=== PATIENT | female | born 1940 | race Two or more races ===

== ENCOUNTER 2023-02-11 13:01 | Inpatient (IN) | payer MEDICAID, OTHER ==
[~2023-02-11] VITALS: Ht 152.4 cm; Wt 71.5 kg
[2023-02-11 13:51] LABS: Basophils # (auto) 0 10 ^3/uL (0-0.2); Basophils % (auto) 0.5 % (0.0-2.0); Eosinophils # (auto) 0.1 10 ^3/uL (0-0.8); Eosinophils % (auto) 0.7 % (0.0-7.0); Hematocrit 32.5 % (36.0-46.0); Hemoglobin 10.9 g/dL (12.2-16.2); Lymphocytes # (auto) 0.8 10 ^3/uL (0.4-5.4); Lymphocytes % (auto) 10.8 % (10.0-50.0); Mean Corpuscular Hemoglobin 33.9 pg (28.0-32.0); Mean Corpuscular Hgb Conc. 33.7 g/dL (32.0-36.0); Mean Corpuscular Volume 100.9 fL (80.0-100.0); Monocytes % (auto) 13.5 % (0.0-12.0); Neutrophils # (auto) 5.4 10 ^3/uL (1.6-8.6); Neutrophils % (auto) 74.5 % (37.0-80.0); Nucleated Red Blood Cells % 0.1 %; Red Blood Cells 3.22 10^6/uL (4.0-5.20); Red Cell Distribution Width 12.9 % (11.8-14.3); White Blood Cell 7.2 10^3/uL (4.4-10.8)
[2023-02-11 14:05] LABS: Acetaminophen < 2.0 UG/ML (10.0-20.0); Alanine Aminotransferase 13 U/L (7-40); Albumin 4.5 g/dL (3.2-4.8); Alkaline Phosphatase 95 U/L (46-116); Anion Gap 5 (5-15); Aspartate Aminotransferase 21 U/L (13-40); BUN/Creatinine Ratio 13.1 (10.0-20.0); Blood Urea Nitrogen 17 mg/dL (9-23); Calcium 9.4 mg/dL (8.7-10.4); Carbon Dioxide 29 mmol/L (20-30); Chloride 105 mmol/L (98-107); Glucose 93 mg/dL (74-106); Magnesium 2.1 mg/dL (1.6-2.6); Potassium 3.8 mmol/L (3.5-5.1); Sodium 139 mmol/L (136-145)
[2023-02-11 14:06] LABS: Bilirubin, Total 0.8 mg/dL (0.2-1.0); Total Protein 7.6 g/dL (5.7-8.2)
[2023-02-11 14:21] LABS: Salicylate < 3.0 mg/dL (2.8-20.0)
[2023-02-11] MEDS ORDERED: ASPirin-EC 325mg tab PO ONE (14:45)
[2023-02-11 17:51] LABS: INR 1.02 (0.9-1.15); Prothrombin Time 10.7 sec (9.3-11.8)
[2023-02-11] MEDS ORDERED: LORazepam 2MG/ML-1ML VIAL IV PRN (20:00)
[2023-02-11 21:23] LABS: Urine Bacteria NONE SEEN /hpf (None Seen); Urine Blood 2+ /uL (Negative); Urine Clarity Clear (Clear); Urine Color Colorless (Yellow); Urine Mucus FEW (None Seen); Urine Protein, UAD TRACE (Negative); Urine Specific Gravity 1.017 (1.001-1.035); Urine Urobilinogen Normal (Negative); Urine WBC <1 /hpf (0 - 5); Urine pH 5.5 (5.0-8.0)
[2023-02-11 21:29] LABS: Amphetamine Screen, Urine Neg (NEGATIVE); Barbiturate Scree,Urine Neg (NEGATIVE); Benzodiazephine Screen, Urine Neg (NEGATIVE); Cannabinoid Screen, Urine Neg (NEGATIVE); Cocaine Screen, Urine Neg (NEGATIVE); Opiate Scree,Urine Neg (NEGATIVE); Phencyclidine Screen, Urine Neg (NEGATIVE)
[2023-02-11] MEDS ORDERED: ONDANSETRON HCL 4 MG/2 ML VIAL IV PRN (21:45)
[2023-02-11] MEDS ORDERED: NITROGLYCERIN 0.4 MG SL TAB SL PRN (21:45)
[2023-02-11] MEDS ORDERED: MORPHINE SULFATE INJ 2 MG/ml SYRG IV PRN (21:45)
[2023-02-11] MEDS ORDERED: DOCUSATE SOD 100 MG CAP PO PRN (21:45)
[2023-02-11] MEDS ORDERED: ACETAMINOPHEN 325 MG TAB PO PRN (21:45)
[2023-02-11 22:07] VITALS: PULSE 99; RESP 18; O2SAT 97
[2023-02-11] MEDS: SODIUM CHLORIDE 0.9% 1,000 ML IV SCH (22:26)
[2023-02-11] MEDS ORDERED: hydrALAZINE HCL 20 MG/ML VL IV PRN (23:00)
[2023-02-12 07:37] LABS: Eosinophils # (auto) 0 10 ^3/uL (0-0.8); Hemoglobin 10.8 g/dL (12.2-16.2); Monocytes # (auto) 1.2 10 ^3/uL (0-1.3); Red Cell Distribution Width 12.9 % (11.8-14.3); White Blood Cell 7.2 10^3/uL (4.4-10.8)
[2023-02-12 07:40] LABS: Basophils # (auto) 0.1 10 ^3/uL (0-0.2); Basophils % (auto) 0.7 % (0.0-2.0); Eosinophils % (auto) 0.6 % (0.0-7.0); Hematocrit 32.4 % (36.0-46.0); Lymphocytes # (auto) 1.2 10 ^3/uL (0.4-5.4); Lymphocytes % (auto) 16.4 % (10.0-50.0); Mean Corpuscular Hgb Conc. 33.3 g/dL (32.0-36.0); Mean Corpuscular Volume 102.2 fL (80.0-100.0); Monocytes % (auto) 16.1 % (0.0-12.0); Neutrophils # (auto) 4.8 10 ^3/uL (1.6-8.6); Neutrophils % (auto) 66.2 % (37.0-80.0); Red Blood Cells 3.17 10^6/uL (4.0-5.20)
[2023-02-12 07:54] LABS: Alanine Aminotransferase 16 U/L (7-40); Albumin 4.5 g/dL (3.2-4.8); Alkaline Phosphatase 89 U/L (46-116); Anion Gap 10 (5-15); Aspartate Aminotransferase 24 U/L (13-40); BUN/Creatinine Ratio 15.1 (10.0-20.0); Bilirubin, Total 0.6 mg/dL (0.2-1.0); Blood Urea Nitrogen 18 mg/dL (9-23); Calcium 9.6 mg/dL (8.5-10.1); Carbon Dioxide 26 mmol/L (20-30); Chloride 102 mmol/L (98-107); Glucose 109 mg/dL (74-106); Potassium 3.6 mmol/L (3.5-5.1); Sodium 138 mmol/L (136-145); Total Protein 7.6 g/dL (5.7-8.2)
[2023-02-12] MEDS ORDERED: LOS25T PO (08:47)
[2023-02-12] MEDS ORDERED: LEVO50TA7 PO (08:47)
[2023-02-12 09:10] VITALS: BP 141/64; PULSE 77; RESP 14; TEMP 97.7; O2SAT 99
[2023-02-12 10:04] LABS: Triglycerides 63 mg/dL (< 150)
[2023-02-12 10:05] LABS: LDL Cholesterol 105 mg/dL (< 100)
[2023-02-12 10:06] LABS: Cholesterol 180 mg/dL (< 200); HDL Cholesterol 69 mg/dL (40-59)
[2023-02-12] MEDS: PANTOPRAZOLE 40 MG/10 ML VIAL INJ IV SCH (10:50)
[2023-02-12] MEDS: ENOXAPARIN SOD 40 MG/0.4 ML SYRINGE SC SCH (10:50)
[2023-02-12] MEDS: LOSARTAN POTASSIUM 25 MG TAB PO SCH (10:51)
[2023-02-12] MEDS: SODIUM CHLORIDE 0.9% 1,000 ML IV SCH ×2 (10:52→17:45)
[2023-02-12] MEDS ORDERED: IOHEXOL 350 MG/ML 100ML IJ ONE (11:24)
[2023-02-12 12:11] VITALS: BP 141/64; PULSE 77; RESP 14; TEMP 97.7; O2SAT 99
[2023-02-12] MEDS ORDERED: ACET-1881 PO (17:58)
[2023-02-12] MEDS ORDERED: GABA-1250 PO (17:58)
[2023-02-12 20:00] VITALS: BP 132/77; PULSE 77; PULSE 78; RESP 18; TEMP 97.9; O2SAT 93
[2023-02-12 22:00] VITALS: BP 132/77; PULSE 78; RESP 18; TEMP 97.9; O2SAT 93
[2023-02-13 02:25] LABS: Rapid Influenza A Negative (Negative); Rapid Influenza B Negative (Negative)
[2023-02-13] MEDS: SODIUM CHLORIDE 0.9% 1,000 ML IV SCH ×2 (03:45→13:45)
[2023-02-13 05:00] VITALS: BP 156/85; PULSE 84; RESP 18; TEMP 98.3; O2SAT 93
[2023-02-13] MEDS ORDERED: LEVOTHYROXINE SODIUM 50 MCG TAB PO SCH (07:00)
[2023-02-13 08:00] VITALS: BP 116/75; PULSE 80; PULSE 85; RESP 20; TEMP 98.3; O2SAT 98
[2023-02-13] MEDS: LOSARTAN POTASSIUM 25 MG TAB PO SCH (09:09)
[2023-02-13] MEDS: ENOXAPARIN SOD 40 MG/0.4 ML SYRINGE SC SCH (09:10)
[2023-02-13] MEDS: PANTOPRAZOLE 40 MG/10 ML VIAL INJ IV SCH (09:10)
[2023-02-13 09:12] VITALS: BP 170/95; PULSE 87; RESP 17; TEMP 97.7; O2SAT 96
[2023-02-13 13:10] VITALS: BP 180/77; PULSE 81; RESP 20; TEMP 98.3; O2SAT 96
[2023-02-13 13:35] VITALS: BP 116/75; PULSE 80; RESP 20; TEMP 98.3; O2SAT 98
[2023-02-13 13:47] VITALS: BP 116/75; TEMP 36.8
[2023-02-13] MEDS ORDERED: amLODIPine BESYLATE 5 MG TAB PO ONE (15:00)
[2023-02-14] MEDS ORDERED: amLODIPine BESYLATE 5 MG TAB PO SCH (10:00)
== END 2023-02-13 15:00 | disposition home or self-care (01) | DRG 812 ==
LOC: ER 13:01 → EDBD 13:01 → TELE 21:42 → TELE-EAST 02-12 09:07
PROVIDERS: ADMIT Nurse Practitioner; ATTEND Nurse Practitioner
DX: T42.6X1A Poisoning by other antiepileptic and sedative-hypnotic drugs, accidental (unintentional), initial encounter (principal); G92.8 Other toxic encephalopathy; I21.A1 Myocardial infarction type 2; E03.9 Hypothyroidism, unspecified; E66.9 Obesity, unspecified; E78.5 Hyperlipidemia, unspecified; G89.29 Other chronic pain; R50.9 Fever, unspecified; M54.41 Lumbago with sciatica, right side; R32 Unspecified urinary incontinence; I11.9 Hypertensive heart disease without heart failure; I16.0 Hypertensive urgency; Z79.899 Other long term (current) drug therapy; Z82.49 Family history of ischemic heart disease and other diseases of the circulatory system; Z85.830 Personal history of malignant neoplasm of bone; Z68.30 Body mass index [BMI] 30.0-30.9, adult
CPT/HCPCS: 36415; 70450; 70551; 71045; 71275; 80053; 80061; 80307; 80320; 80329; 81001; 83735; 83880; 84443; 84484; 85025; 85379; 85610; 87804; 93005; 93970; 95819; 96374; 97110; 97116; 97163; 97530; C9113; G0378

== ENCOUNTER 2023-11-13 18:49 | Inpatient (IN) | payer MEDICAID ==
[~2023-11-13] VITALS: Ht 154.9 cm; Wt 70.7 kg
[~2023-11-13 18:49] MED LIST: ACET-1881 PO; GABA-1250 PO; LEVO50TA7 PO; LOS25T PO
[2023-11-13 19:44] LABS: Urine WBC None Seen /hpf (0 - 5)
[2023-11-13 20:10] LABS: Urine Bacteria FEW /hpf (None Seen); Urine Blood TRACE /uL (Negative); Urine Clarity Clear (Clear); Urine Color Colorless (Yellow); Urine Protein, UAD Negative (Negative); Urine Specific Gravity 1.011 (1.001-1.035); Urine Urobilinogen Normal (Negative)
[2023-11-13 20:22] LABS: Basophils # (auto) 0.1 10 ^3/uL (0-0.2); Eosinophils # (auto) 0.1 10 ^3/uL (0-0.8); Lymphocytes # (auto) 1.4 10 ^3/uL (0.4-5.4); Monocytes # (auto) 1.1 10 ^3/uL (0-1.3); Monocytes % (auto) 10.3 % (0.0-12.0)
[2023-11-13 20:26] LABS: Basophils % (auto) 0.6 % (0.0-2.0); Hematocrit 28.7 % (36.0-46.0); Mean Corpuscular Hemoglobin 36.1 pg (28.0-32.0); Mean Corpuscular Hgb Conc. 34.9 g/dL (32.0-36.0); Mean Corpuscular Volume 103.3 fL (80.0-100.0); Neutrophils % (auto) 75.1 % (37.0-80.0); Nucleated Red Blood Cells % 0.1 %; Platelet Count (auto) 346 10^3/uL (140-450); Red Blood Cells 2.78 10^6/uL (4.0-5.20); Red Cell Distribution Width 13.9 % (11.8-14.3); White Blood Cell 10.6 10^3/uL (4.4-10.8)
[2023-11-13 20:34] LABS: Alanine Aminotransferase 13 U/L (7-40); Albumin 4.5 g/dL (3.2-4.8); Alkaline Phosphatase 107 U/L (46-116); Anion Gap 8 (5-15); Aspartate Aminotransferase 17 U/L (13-40); BUN/Creatinine Ratio 22.3 (10.0-20.0); Bilirubin, Total 0.5 mg/dL (0.2-1.0); Blood Urea Nitrogen 27 mg/dL (9-23); Calcium 9.8 mg/dL (8.7-10.4); Carbon Dioxide 26 mmol/L (20-30); Chloride 107 mmol/L (98-107); Glucose 115 mg/dL (74-106); Potassium 4.2 mmol/L (3.5-5.1); Sodium 141 mmol/L (136-145); Total Protein 6.9 g/dL (5.7-8.2)
[2023-11-13] MEDS: SODIUM CHLORIDE 0.9% 1,000 ML IV ONE (22:30)
[2023-11-13] MEDS ORDERED: MORPHINE SULFATE INJ 2 MG/ml SYRG IV PRN (22:45)
[2023-11-13] MEDS ORDERED: ONDANSETRON HCL 4 MG/2 ML VIAL IV PRN (22:45)
[2023-11-13] MEDS ORDERED: NITROGLYCERIN 0.4 MG SL TAB SL PRN (22:45)
[2023-11-13] MEDS: SODIUM CHLORIDE 0.9% 1,000 ML IV SCH (23:03)
[2023-11-13] MEDS: hydrALAZINE HCL 20 MG/ML VL IV ONE (23:03)
[2023-11-13] MEDS: ACETAMINOPHEN 325 MG TAB PO PRN (23:35)
[2023-11-13 23:51] LABS: Rapid Influenza A Negative (Negative); Rapid Influenza B Negative (Negative)
[2023-11-13 23:52] LABS: COVID19 ANTIGEN SOFIA FIA NEGATIVE (NEGATIVE)
[2023-11-14] VITALS (9 sets, daily range): BP systolic 141–164; BP diastolic 63–81; PULSE 74–94; RESP 16–18; TEMP 97.5–98.5; O2SAT 94–98
[2023-11-14 07:25] LABS: Eosinophils # (auto) 0.1 10 ^3/uL (0-0.8); Eosinophils % (auto) 1.2 % (0.0-7.0); Lymphocytes # (auto) 1.2 10 ^3/uL (0.4-5.4); Mean Corpuscular Volume 102.1 fL (80.0-100.0); Neutrophils # (auto) 8.4 10 ^3/uL (1.6-8.6)
[2023-11-14 07:29] LABS: Basophils # (auto) 0.1 10 ^3/uL (0-0.2); Basophils % (auto) 0.5 % (0.0-2.0); Hematocrit 26.7 % (36.0-46.0); Hemoglobin 9.5 g/dL (12.2-16.2); Lymphocytes % (auto) 10.9 % (10.0-50.0); Mean Corpuscular Hemoglobin 36.4 pg (28.0-32.0); Mean Corpuscular Hgb Conc. 35.6 g/dL (32.0-36.0); Monocytes # (auto) 1.2 10 ^3/uL (0-1.3); Monocytes % (auto) 11.2 % (0.0-12.0); Neutrophils % (auto) 76.2 % (37.0-80.0); Platelet Count (auto) 307 10^3/uL (140-450); Red Blood Cells 2.61 10^6/uL (4.0-5.20); Red Cell Distribution Width 13.7 % (11.8-14.3)
[2023-11-14 07:38] LABS: Alanine Aminotransferase 11 U/L (7-40); Alkaline Phosphatase 79 U/L (46-116); Anion Gap 6 (5-15); Aspartate Aminotransferase 16 U/L (13-40); BUN/Creatinine Ratio 16.3 (10.0-20.0); Blood Urea Nitrogen 17 mg/dL (9-23); Calcium 9.5 mg/dL (8.7-10.4); Carbon Dioxide 26 mmol/L (20-30); Chloride 109 mmol/L (98-107); Glucose 96 mg/dL (74-106); Sodium 141 mmol/L (136-145)
[2023-11-14 07:39] LABS: Bilirubin, Total 0.6 mg/dL (0.2-1.0); Total Protein 6.5 g/dL (5.7-8.2)
[2023-11-14] MEDS: ENOXAPARIN SOD 30 MG/0.3 ML SYRINGE SC SCH (08:31)
[2023-11-14 10:33] LABS: Triglycerides 47 mg/dL (< 150)
[2023-11-14 10:34] LABS: LDL Cholesterol 58 mg/dL (< 100)
[2023-11-14 10:35] LABS: Cholesterol 146 mg/dL (< 200); HDL Cholesterol 71 mg/dL (40-59)
[2023-11-14] MEDS: LEVOTHYROXINE SODIUM 50 MCG TAB PO SCH (11:05)
[2023-11-14] MEDS: GABAPENTIN 300 MG CAP PO SCH (11:05)
[2023-11-14] MEDS: LOSARTAN POTASSIUM 25 MG TAB PO SCH (11:05)
[2023-11-14] MEDS: guaiFENesin 200 MG/10 ML UD PO PRN (15:40)
[2023-11-15] VITALS (8 sets, daily range): BP systolic 141–191; BP diastolic 66–88; PULSE 60–94; RESP 16–20; TEMP 97.9–99.1; O2SAT 93–99
[2023-11-15] MEDS: FLUTICASONE PROP NASAL SPR 0.05 % (50MCG) 16GM EACHNOSTRI SCH (10:00)
[2023-11-15] MEDS: cefTRIAXone 1GM/50ML D5W 50 ML IV SCH (14:35)
[2023-11-15] MEDS ORDERED: hydrALAZINE HCL 20 MG/ML VL IV PRN (17:00)
[2023-11-15] MEDS: guaiFENesin 200 MG/10 ML UD PO PRN (19:06)
[2023-11-16] VITALS (8 sets, daily range): BP systolic 118–166; BP diastolic 56–75; PULSE 84–93; RESP 18–20; TEMP 37; O2SAT 92–98
[2023-11-16] MEDS: amLODIPine BESYLATE 5 MG TAB PO SCH (07:56)
[2023-11-16 10:21] LABS: Chloride 107 mmol/L (98-107); Potassium 3.7 mmol/L (3.5-5.1); Sodium 141 mmol/L (136-145)
[2023-11-16 10:22] LABS: Anion Gap 9 (5-15); Carbon Dioxide 25 mmol/L (20-30)
[2023-11-16 10:23] LABS: Calcium 9.5 mg/dL (8.7-10.4)
[2023-11-16 10:27] LABS: Glucose 117 mg/dL (74-106)
[2023-11-16 10:28] LABS: BUN/Creatinine Ratio 7.7 (10.0-20.0); Blood Urea Nitrogen 8 mg/dL (9-23)
[2023-11-16] MEDS ORDERED: AML5T PO (14:22)
[2023-11-16] MEDS ORDERED: CEPH500C PO (14:22)
== END 2023-11-16 17:40 | disposition home or self-care (01) | DRG 422 ==
LOC: ER 18:49 → TELE 22:38 → TELE-WESTW 22:38
PROVIDERS: ADMIT Internal Medicine; ATTEND Internal Medicine
DX: E86.0 Dehydration (principal); G93.41 Metabolic encephalopathy; N17.9 Acute kidney failure, unspecified; I16.0 Hypertensive urgency; I12.9 Hypertensive chronic kidney disease with stage 1 through stage 4 chronic kidney disease, or unspecified chronic kidney disease; Z20.822 Contact with and (suspected) exposure to COVID-19; E78.5 Hyperlipidemia, unspecified; J06.9 Acute upper respiratory infection, unspecified; N18.9 Chronic kidney disease, unspecified; G89.29 Other chronic pain; Z82.49 Family history of ischemic heart disease and other diseases of the circulatory system; Z85.819 Personal history of malignant neoplasm of unspecified site of lip, oral cavity, and pharynx; Z85.830 Personal history of malignant neoplasm of bone; Z79.899 Other long term (current) drug therapy; W18.39XA Other fall on same level, initial encounter; Y93.89 Activity, other specified; Y92.89 Other specified places as the place of occurrence of the external cause; Y99.8 Other external cause status; N39.0 Urinary tract infection, site not specified
CPT/HCPCS: 36415; 70450; 70551; 71045; 74176; 80048; 80053; 80061; 81001; 83605; 83880; 84443; 84484; 85025; 87426; 87804; 93005; 93306; 95819; 97110; 97116; 97163; 97530; G0378

== ENCOUNTER → 2023-11-24 | Outpatient (CLI) | payer MEDICAID ==
[~2023-11-24] VITALS: Ht 152.4 cm; Wt 66.2 kg
[~2023-11-24] MED LIST changes: +AML5T PO; +CEPH500C PO
[2023-11-24] MEDS: REGADENOSON 0.4 MG/5 ML SYRG IV ONE ×2 (09:54→09:55)
== END | disposition home or self-care (01) ==
LOC: RT 07:53
PROVIDERS: ATTEND Specialist
DX: I10 Essential (primary) hypertension (principal); E78.5 Hyperlipidemia, unspecified; E03.9 Hypothyroidism, unspecified; C06.9 Malignant neoplasm of mouth, unspecified
CPT/HCPCS: 93017; J2785; 78452

== ENCOUNTER 2024-06-19 20:29 | Inpatient (IN) | payer MEDICAID ==
[~2024-06-19] VITALS: Ht 157.5 cm; Wt 65.6 kg
--- NOTE | 2024-06-19 20:47 | ED.PDOC ---
GI ASSESSMENT HPI Comments 84 y.o female with PMHx of oral cancer, thyroid disease, HTN, gastritis, hyperlipidemia, and CKF, presents to the ED for a chief complaint of constipation associated with nausea and vomiting that started 3-4 days ago. Family member reports that patient has only been able to pass minimal amount of stool, is distended and is now complaining of both abdominal and back pain. Today, family noted patient confused when speaking to her and would not respond to her name. Patient has had no fever, chills, chest pain SOB, dysuria, hematuria vaginal bleeding. Time Seen by MD: 20:40 Primary Care Provider: ZAC Reviewed Notes: Nurses Notes, Medications, Allergies Allergies: Coded Allergies: NO KNOWN ALLERGIES (Unverified , 11/24/23) Home Meds Active Scripts Cephalexin Monohydrate (Cephalexin) 500 Mg Cap, 1 CAP PO BID, #20 CAP Prov:ANNEMARIE MILLER HOGSHEAD INSPECTOR 11/16/23 Amlodipine Besylate (NORVASC TABLET) 5 Mg Tb, 10 MG PO DAILY for 30 Days, #60 TAB Prov:ANNEMARIE MILLER HOGSHEAD INSPECTOR 11/16/23 Reported Medications Acetaminophen (Acetaminophen) 325 Mg Tab, 650 MG PO Q4HP PRN for MILD PAIN for 30 Days, MG 0 Refills 02/12/23 Gabapentin (Gabapentin) 300 Mg Cap, 300 MG PO for 30 Days, MG 02/12/23 Losartan Potassium (Losartan Potassium) 25 Mg Tab, 1 TAB PO DAILY 02/12/23 Levothyroxine Sodium (Levothyroxine Sodium) 50 Mcg Tab, 1 CAP PO QAM 02/12/23 Information Source: Relative Mode of Arrival: Wheelchair Timing: Days Duration: Since onset Quality: Aching Vomitus: Firm Stool: Minimal, Empty Severity: Moderate Recent: None Recent Hx of: None Pain Location: Diffuse Modifying Factors: Nothing Associated sign and symptoms: Nausea, Vomiting, Constipation, Abdominal Pain Past Medical History PAST MEDICAL HISTORY: Cancer, CKF, High Lipids, HTN, Thyroid Surgical History: Tubal Ligation Surgical History (Other): Mouth and cataracts DISTRIBUTION OPERATIONS SUPERVISOR History: No Pertinent DISTRIBUTION OPERATIONS SUPERVISOR History, Uterine Fibroids Family History Family History: Reviewed,noncontributory to illness, Family hx of Cancer, Family hx of HTN Social History Smoker: Non-Smoker Alcohol: Denies ETOH Use Drugs: Denies Drug Use Lives In: Home Constitutional: denies: chills, diaphoresis, fatigue, fever, malaise, sweats, weakness, others EENTM: denies: blurred vision, double vision, ear bleeding, ear discharge, ear drainage, ear pain, ear ringing, eye pain, eye redness, hearing loss, mouth pain, mouth swelling, nasal discharge, nose bleeding, nose congestion, nose pain, photophobia, tearing, throat pain, throat swelling, voice changes, others Respiratory: denies: cough, hemoptysis, orthopnea, SOB at rest, shortness of breath, SOB with excertion, stridor, wheezing, others Cardiovascular: denies: chest pain, dizzy spells, diaphoresis, Dyspnea on exertion, edema, irregular heart beat, left arm pain, lightheadedness, palpitations, PND, syncope, others Gastrointestinal: reports: abdomen distended, abdominal pain, constipated, [place], vomiting; denies: blood streaked bowels, diarrhea, dysphagia, difficulty swallowing, hematemesis, melena, poor appetite, poor fluid intake, rectal bleeding, rectal pain, others Genitourinary: denies: abnormal vagina bleeding, burning, dyspareunia, dysuria, flank pain, frequency, hematuria, incontinence, pain, , vagina discharge, urgency, others Neurological: denies: dizziness, fainting, headache, left sided numbness, left sided weakness, numbness, paresthesia, pre-existing deficit, right sided numbness, right sided weakness, seizure, speech problems, tingling, tremors, weakness, others Musculoskeletal: reports: back pain; denies: gout, joint pain, joint swelling, muscle pain, muscle stiffness, neck pain, others Integumetry: denies: bruises, change in color, change in hair/nails, dryness, laceration, lesions, lumps, rash, wounds, others Allergic/Immunocompromised: denies: Difficulty Healing, Frequent Infections, Hives, Itching, others Hematologic/Lymphatic: denies: anemia, blood clots, easy bleeding, easy bruising, swollen glands, others Endocrine: denies: excessive hunger, excessive sweating, excessive thirst, excessive urination, flushing, intolerance to cold, intolerance to heat, unexplained weight gain, unexplained weight loss, others Psychiatric: denies: anxiety, bipolar disorder, depression, hopeless, panic disorder, schizophrenia, sleepless, suicidal, others All Other Systems: Reviewed and Negative Physical Exam General Appearance: Moderate Distress, Obese HEENT: Normal ENT Inspection, Pharynx Normal, TMs Normal Neck: Full Range of Motion, Non-Tender, Normal, Normal Inspection Respiratory: Chest Non-Tender, Lungs Clear, No Accessory Muscle Use, No Res piratory Distress, Normal Breath Sounds Cardiovascular: No Edema, No JVD, No Murmur, No Gallop, Normal Peripheral Pulses, Regular Rate/Rhythm Breast Exam: Deferred Gastrointestinal: Diffuse, No Organomegaly, No Pulsatile Mass, Normal Bowel Sounds, Soft, Tenderness Genitalia: Deferred Pelvic: Deferred Rectal: Deferred Extremities: No calf tenderness, Normal capillary refill, Normal inspection, Normal range of motion, Non-tender, No pedal edema Musculoskeletal : Apperance: Normal Neurologic: Alert, welder manufacture II-XII nml as Tested, No Motor Deficits, Normal Affect, Normal Mood, No Sensory Deficits Cerebellar Function: Normal Reflexes: Normal Skin: Dry, Normal Color, Warm Lymphatic: No Adenopathy Was a procedure done? Was a procedure done?: No GI differential Dx Differential Diagnosis: Constipation, Esophagitis, Gastroenteritis, Inflammatory BD X-Ray, Labs, Meds, VS Vital Signs Date Time Temp Pulse Resp B/P (MAP) Pulse Ox O2 Delivery O2 Flow Rate FiO2 06/19/24 20:30 98.0 92 18 163/87 (112) 98 98.0 Lab Test 06/19/24 21:01 Range/Units White Blood Count 9.7 4.4-10.8 10^3/uL Red Blood Count 2.96 L 4.0-5.20 10^6/uL Hemoglobin 9.9 L 12.2-16.2 g/dL Hematocrit 29.6 L 36.0-46.0 % Mean Corpuscular Volume 100.0 80.0-100.0 fL Mean Corpuscular Hemoglobin 33.4 H 28.0-32.0 pg Mean Corpuscular Hemoglobin Concent 33.4 32.0-36.0 g/dL Red Cell Distribution Width 13.6 11.8-14.3 % Platelet Count 441 140-450 10^3/uL Mean Platelet Volume 6.5 L 6.9-10.8 fL Neutrophils (%) (Auto) 67.0 37.0-80.0 % Lymphocytes (%) (Auto) 19.3 10.0-50.0 % Monocytes (%) (Auto) 11.6 0.0-12.0 % Eosinophils (%) (Auto) 1.7 0.0-7.0 % Basophils (%) (Auto) 0.4 0.0-2.0 % Neutrophils # (Auto) 6.5 1.6-8.6 10 ^3/uL Lymphocytes # (Auto) 1.9 0.4-5.4 10 ^3/uL Monocytes # (Auto) 1.1 0-1.3 10 ^3/uL Eosinophils # (Auto) 0.2 0-0.8 10 ^3/uL Basophils # (Auto) 0 0-0.2 10 ^3/uL Nucleated Red Blood Cells 0.0 % Sodium Level Pending Potassium Level Pending Chloride Level Pending Carbon Dioxide Level Pending Anion Gap Pending Blood Urea Nitrogen Pending Creatinine Pending Glomerular Filtration Rate Calc Pending BUN/Creatinine Ratio Pending Serum Glucose Pending Calcium Level Pending Total Bilirubin Pending Aspartate Amino Transferase (AST) Pending Alanine Aminotransferase (ALT) Pending Alkaline Phosphatase Pending Total Protein Pending Albumin Pending The patient was CBC shows anemia with a hemoglobin of 9.9 and hematocrit of 29.6 The platelets are within normal limits The chemistry panel is pending at this time The CAT scan of the abdomen and pelvis shows:IMPRESSION: 1. Hiatal hernia 2. No calcified gallstones 3. No nephrolithiasis or hydronephrosis 4. No findings of bowel obstruction. There is a large stool burden in the right colon. 5. No free air or free fluid. The patient was admitted Images Reviewed?: Images reviewed and evaluated by me Time of 1ST Reevaluation: 20:43 Reevaluation 1ST: Unchanged Patient Education/Counseling: Other Family Education/Counseling: Diagnosis, Treatment, Prognosis Departure 1 Departure Time of Disposition: 21:35 Impression: Primary Impression: Intractable abdominal pain Disposition: ADMITTED INPATIENT Admit to: Med Surg Condition: Fair Critical Care Note Critical Care Time?: No Stability Stability form required: Yes Unstable for transfer: ED Physician Assesment (Clinical assesment) I personally scribed for FERN BOSCH MD ([email or web address]) on 06/19/24 at 20:47. Electronically submitted by Meggan Berger ([facility]). FERN BOSCH MD Jun 19, 2024 20:47
[2024-06-19 21:20] LABS: Basophils # (auto) 0 10 ^3/uL (0-0.2); Basophils % (auto) 0.4 % (0.0-2.0); Eosinophils # (auto) 0.2 10 ^3/uL (0-0.8); Eosinophils % (auto) 1.7 % (0.0-7.0); Hematocrit 29.6 % (36.0-46.0); Hemoglobin 9.9 g/dL (12.2-16.2); Lymphocytes # (auto) 1.9 10 ^3/uL (0.4-5.4); Lymphocytes % (auto) 19.3 % (10.0-50.0); Mean Corpuscular Hemoglobin 33.4 pg (28.0-32.0); Mean Corpuscular Hgb Conc. 33.4 g/dL (32.0-36.0); Monocytes # (auto) 1.1 10 ^3/uL (0-1.3); Monocytes % (auto) 11.6 % (0.0-12.0); Neutrophils # (auto) 6.5 10 ^3/uL (1.6-8.6); Platelet Count (auto) 441 10^3/uL (140-450); Red Blood Cells 2.96 10^6/uL (4.0-5.20); Red Cell Distribution Width 13.6 % (11.8-14.3); White Blood Cell 9.7 10^3/uL (4.4-10.8)
--- NOTE | 2024-06-19 21:24 | DVH ---
Exam: CT CT AB PEL WO CON-NO ORAL OR IV History: pain Comparison Study: None available at time of dictation. TECHNIQUE: Multidetector CT of the abdomen was performed from lung bases to pubic symphysis. Imaging was performed without IV contrast. Axial, coronal and sagittal multiplanar reformats were obtained fr om the axial data set by the technologist. Radiation Dose Information: CT Dose: CTDI volume is 8.98 mGy. Dose-length product is 461.89 mGy*cm FINDINGS: Evaluation of solid organs is limited due to lack of intravenous contrast use. Findings: Lung Bases: No acute or significant lung base finding. Normal heart size. No pleural or pericardial effusion. Liver: The liver is normal in size. No focal lesions. Gallbladder and Biliary Tree: Unremarkable Spleen: Unremarkable Pancreas: The pancreas is grossly normal in appearance. Adrenal Glands: Unremarkable Kidneys: Kidneys are grossly normal without calculi or hydronephrosis. Bladder: Grossly unremarkable for degree of distention. Bowel: The stomach is grossly normal in appearance. Hiatal hernia. Small bowel and colon are normal i n caliber and distribution. The appendix is not visualized; however, no secondary findings of acute appendicitis identified. Ascites: Absent Lymphadenopathy: No mesenteric, retroperitoneal or periportal lymphadenopathy. Abdominal Wall and Mesentery: Unremarkable. Vasculature: The visualized abdominal aorta is normal in size and caliber. Evaluation of abdominal a nd pelvic vessels is limited due to lack of intravenous contrast. Pelvic Organs: Unremarkable Musculoskeletal: No aggressive focal bony lesions, acute fractures or dislocation. Soft tissues: Unremarkable IMPRESSION: 1. Hiatal hernia 2. No calcified gallstones 3. No nephrolithiasis or hydronephrosis 4. No findings of bowel obstruction. There is a large stool burden in the right colon. 5. No free air or free fluid. HS:Y Radiation optimization: All CT scans at this facility use at least one of these dose optimization bambi hniques: automated exposure control mA and/or kV adjustment per patient size (includes targeted exam s where dose is matched to clinical indication) or iterative reconstruction.
[2024-06-19 21:42] LABS: Alanine Aminotransferase 13 U/L (7-40); Albumin 4.5 g/dL (3.2-4.8); Alkaline Phosphatase 105 U/L (46-116); Anion Gap 11 (5-15); Aspartate Aminotransferase 17 U/L (13-40); BUN/Creatinine Ratio 17.4 (10.0-20.0); Bilirubin, Total 0.6 mg/dL (0.2-1.0); Blood Urea Nitrogen 19 mg/dL (9-23); Carbon Dioxide 22 mmol/L (20-31); Chloride 101 mmol/L (98-107); Glucose 89 mg/dL (74-106); Potassium 3.9 mmol/L (3.5-5.1); Total Protein 7.5 g/dL (5.7-8.2)
[2024-06-19 21:44] LABS: Urine Bacteria None Seen /hpf (None Seen)
[2024-06-19 21:44] LABS: Sodium 134 mmol/L (136-145)
[2024-06-19 22:05] LABS: Urine Blood Negative /uL (Negative); Urine Clarity Clear (Clear); Urine Color Colorless (Yellow); Urine Protein, UAD Negative (Negative); Urine Specific Gravity 1.009 (1.001-1.035); Urine Squamous Epithelial Cell FEW /hpf (<5); Urine Urobilinogen Normal (Negative); Urine WBC < 1 /HPF (0-5); Urine pH 6.5 (5.0-9.0)
--- NOTE | 2024-06-19 23:56 | DVHHP2 ---
Patient Family History: FH: cancer Allergies: Coded Allergies: NO KNOWN ALLERGIES (Unverified , 11/24/23) Home Meds Active Scripts Cephalexin Monohydrate (Cephalexin) 500 Mg Cap, 1 CAP PO BID, #20 CAP Prov:ANNEMARIE MILLER METAL CONTROL COORDINATOR 11/16/23 Amlodipine Besylate (NORVASC TABLET) 5 Mg Tb, 10 MG PO DAILY for 30 Days, #60 TAB Prov:ANNEMARIE MILLER METAL CONTROL COORDINATOR 11/16/23 Reported Medications Acetaminophen (Acetaminophen) 325 Mg Tab, 650 MG PO Q4HP PRN for MILD PAIN for 30 Days, MG 0 Refills 02/12/23 Gabapentin (Gabapentin) 300 Mg Cap, 300 MG PO for 30 Days, MG 02/12/23 Losartan Potassium (Losartan Potassium) 25 Mg Tab, 1 TAB PO DAILY 02/12/23 Levothyroxine Sodium (Levothyroxine Sodium) 50 Mcg Tab, 1 CAP PO QAM 02/12/23 Vital Signs Vital Signs Date Time Temp Pulse Resp B/P (MAP) Pulse Ox O2 Delivery O2 Flow Rate FiO2 06/19/24 20:30 98.0 92 18 163/87 (112) 98 98.0 Results Labs Test 06/19/24 21:01 06/19/24 20:46 Range/Units White Blood Count 9.7 4.4-10.8 10^3/uL Red Blood Count 2.96 L 4.0-5.20 10^6/uL Hemoglobin 9.9 L 12.2-16.2 g/dL Hematocrit 29.6 L 36.0-46.0 % Mean Corpuscular Volume 100.0 80.0-100.0 fL Mean Corpuscular Hemoglobin 33.4 H 28.0-32.0 pg Mean Corpuscular Hemoglobin Concent 33.4 32.0-36.0 g/dL Red Cell Distribution Width 13.6 11.8-14.3 % Platelet Count 441 140-450 10^3/uL Mean Platelet Volume 6.5 L 6.9-10.8 fL Neutrophils (%) (Auto) 67.0 37.0-80.0 % Lymphocytes (%) (Auto) 19.3 10.0-50.0 % Monocytes (%) (Auto) 11.6 0.0-12.0 % Eosinophils (%) (Auto) 1.7 0.0-7.0 % Basophils (%) (Auto) 0.4 0.0-2.0 % Neutrophils # (Auto) 6.5 1.6-8.6 10 ^3/uL Lymphocytes # (Auto) 1.9 0.4-5.4 10 ^3/uL Monocytes # (Auto) 1.1 0-1.3 10 ^3/uL Eosinophils # (Auto) 0.2 0-0.8 10 ^3/uL Basophils # (Auto) 0 0-0.2 10 ^3/uL Nucleated Red Blood Cells 0.0 % Sodium Level 134 L 136-145 mmol/L Potassium Level 3.9 3.5-5.1 mmol/L Chloride Level 101 98-107 mmol/L Carbon Dioxide Level 22 20-31 mmol/L Anion Gap 11 5-15 Blood Urea Nitrogen 19 9-23 mg/dL Creatinine 1.09 H 0.550-1.02 mg/dL Glomerular Filtration Rate Calc 49 >90 mL/min BUN/Creatinine Ratio 17.4 10.0-20.0 Serum Glucose 89 74-106 mg/dL Calcium Level 10.0 8.7-10.4 mg/dL Total Bilirubin 0.6 0.2-1.0 mg/dL Aspartate Amino Transferase (AST) 17 13-40 U/L Alanine Aminotransferase (ALT) 13 7-40 U/L Alkaline Phosphatase 105 46-116 U/L Total Protein 7.5 5.7-8.2 g/dL Albumin 4.5 3.2-4.8 g/dL Urine Color Colorless Yellow Urine Clarity Clear Clear Urine pH 6.5 5.0-9.0 Urine Specific [place] 1.009 1.001-1.035 Urine Protein Negative Negative Urine Ketones Negative Negative Urine Blood Negative Negative /uL Urine Nitrite Negative Negative Urine Bilirubin Negative Negative Urine Urobilinogen Normal Negative mg/dL Urine Leukocyte Esterase Negative Negative /uL Urine RBC 1 0 - 4 /hpf Urine Microscopic WBC < 1 0-5 /HPF Urine Squamous Epithelial Cells Few <5 /hpf Urine Bacteria None seen None Seen /hpf Urine Glucose Normal Normal mg/dL Plan Subjective: Chief Complaint Abdominal pain, constipation with nausea and vomiting for 3-4 days, back pain, confusion and unresponsiveness History of Present Illness Mrs. Sr, a patient with a history of thyroid disease, hypertension, gastritis, and oral cancer, presents with complaints of constipation, nausea, and vomiting lasting for 3 to 4 days. Her chief complaints are abdominal pain and constipation. The patient reports being able to pass only minimal amounts of stool during this period. She is now experiencing both abdominal and back pain. Her family has noticed concerning behavioral changes, including confusion, speaking to herself, and not responding to her name. Mrs. Sr denies any fever, chills, shortness of breath, dysuria, hematuria, or vaginal bleeding. Mrs. Sr has a significant medical history including hypertension, oral cancer, hyperlipidemia, and thyroid disease. She also has a past surgical history of tubal ligation. Her family history is notable for cancer and hypertension. Socially, the patient is not a smoker, denies alcohol use, and denies using drugs. She lives at home. The patient's recent medical history includes a hospitalization in October 2019 for a fall and metabolic encephalopathy, during which she experienced hypertension, emergency, and dehydration. Medical History The patient has a history of oral cancer, thyroid disease, hypertension, hyperlipidemia, and gastritis. She was previously hospitalized in October 2019 for a fall and metabolic encephalopathy, which was accompanied by hypertensive emergency and dehydration. The patient also has a history of peripheral neuropathy. Additionally, she has undergone a tubal ligation in the past. Surgical History The patient's surgical history includes a tubal ligation. No other surgical procedures are mentioned in the provided information. Family History The patient has a family history of cancer and hypertension. No specific details about affected family members or age of onset were provided. Social History The patient lives at home. She is not a smoker and denies using drugs. The patient initially denied alcohol use but later did not deny it, suggesting possible alcohol consumption. No further details about substance use patterns or quantities were provided. Objective: N/A Assessment & Plan: Mrs. Sr, with a history of thyroid disease, hypertension, gastritis, and oral cancer, presents with constipation, nausea, vomiting, abdominal pain, and back pain for 3-4 days, along with confusion noted by family. Abdominal pain and constipation Assessment: Patient presents with abdominal pain and constipation lasting 3-4 days, accompanied by nausea and vomiting. She has been able to pass minimal amounts of stool. The patient also complains of back pain. CT scan of the abdomen and pelvis shows hyperhernia, with no calcified gallstones, nephrolithiasis, or bowel obstruction. The patient's family has noticed confusion, self-talking, and unresponsiveness to her name, which may indicate metabolic encephalopathy. Laboratory results show iron deficiency anemia, which could be contributing to or resulting from the gastrointestinal issues. Plan: - Initiate laxatives (specific medication and dosage not mentioned) - Start IV hydration - Obtain GI consultation - Administer PRN medication for nausea and vomiting (specific medication not mentioned) - Prescribe ibuprofen for pain (dosage not specified) Oral cancer Assessment: Patient has a history of oral cancer. No further information is available at this time regarding the status, stage, or treatment of the oral cancer. Plan: - Obligatory consultation (specific type of consultation not mentioned) Hypothyroidism Assessment: Patient has a history of thyroid disease, presumed to be hypothyroidism based on current medication management. Plan: - Continue current thyroid medication (specific medication and dosage not mentioned) Hypertension Assessment: Patient has a history of hypertension, which is currently controlled on home medication. Plan: - Continue home medication for hypertension (specific medication and dosage not mentioned) - PRN IV medication (specific medication, indication, and dosage not mentioned) Peripheral neuropathy Assessment: Patient has a history of peripheral neuropathy, currently managed with medication. Plan: - Continue gabapentin (dosage not specified) Plan discussed with: Patient VALENTINO COHEN MD Jun 19, 2024 23:56
[2024-06-20] MEDS ORDERED: ONDANSETRON HCL 4 MG/2 ML VIAL IV PRN
[2024-06-20] MEDS ORDERED: MORPHINE SULFATE INJ 2 MG/ml SYRG IV PRN ×2
[2024-06-20] MEDS ORDERED: NITROGLYCERIN 0.4 MG SL TAB SL PRN
[2024-06-20] MEDS: SODIUM CHLORIDE 0.9% 1,000 ML IV SCH
[2024-06-20] MEDS ORDERED: ACETAMINOPHEN 325 MG TAB PO PRN
[2024-06-20] MEDS: hydrALAZINE HCL 20 MG/ML VL IV SCH (05:15)
[2024-06-20 06:28] LABS: Basophils # (auto) 0 10 ^3/uL (0-0.2); Basophils % (auto) 0.4 % (0.0-2.0); Eosinophils # (auto) 0.1 10 ^3/uL (0-0.8); Eosinophils % (auto) 1.8 % (0.0-7.0); Hematocrit 27.4 % (36.0-46.0); Hemoglobin 9.5 g/dL (12.2-16.2); Lymphocytes # (auto) 1.3 10 ^3/uL (0.4-5.4); Lymphocytes % (auto) 15.5 % (10.0-50.0); Mean Corpuscular Hemoglobin 33.2 pg (28.0-32.0); Mean Corpuscular Hgb Conc. 34.5 g/dL (32.0-36.0); Mean Corpuscular Volume 96.3 fL (80.0-100.0); Monocytes # (auto) 1.1 10 ^3/uL (0-1.3); Monocytes % (auto) 13.4 % (0.0-12.0); Neutrophils # (auto) 5.8 10 ^3/uL (1.6-8.6); Neutrophils % (auto) 68.9 % (37.0-80.0); Platelet Count (auto) 403 10^3/uL (140-450); Red Blood Cells 2.84 10^6/uL (4.0-5.20); Red Cell Distribution Width 13.4 % (11.8-14.3); White Blood Cell 8.4 10^3/uL (4.4-10.8)
[2024-06-20 06:50] LABS: Alanine Aminotransferase 12 U/L (7-40); Alkaline Phosphatase 101 U/L (46-116); Anion Gap 12 (5-15); BUN/Creatinine Ratio 15.7 (10.0-20.0); Blood Urea Nitrogen 17 mg/dL (9-23); Calcium 9.9 mg/dL (8.7-10.4); Carbon Dioxide 24 mmol/L (20-31); Chloride 101 mmol/L (98-107); Glucose 94 mg/dL (74-106); Potassium 3.7 mmol/L (3.5-5.1); Sodium 137 mmol/L (136-145); Total Protein 7.2 g/dL (5.7-8.2)
[2024-06-20 06:51] LABS: Albumin 4.4 g/dL (3.2-4.8); Aspartate Aminotransferase 16 U/L (13-40); Bilirubin, Total 0.7 mg/dL (0.2-1.0)
[2024-06-20] MEDS: POLYETHYLENE GLYCOL 17 GM PWDR PO SCH (11:06)
--- NOTE | 2024-06-20 13:30 | DVHINCON2 ---
GI Consult Consult Note GI consult note Date of Consultation: 06/20/2024 Chief Complaint: Abdominal pain Referring Physician: Dr. Hill H&P: 84-year-old Cypriot-speaking female, Abdulaziz WELLS translating, with past medical history of oral cancer, thyroid disease, hypertension, gastritis, hyperlipidemia, [place] presents to the ED with chief complaints of constipation associated with nausea and vomiting that started 3-4 days ago. Patient denies abdominal pain . Only able to pass a small amount of hard stool. Patient has noticed that she is having worsening symptoms of constipation in the past one year. No melena or red blood in stool. No nausea or vomiting at this time. Denies hematemesis Patient denies weight loss. But admits to having decreased appetite. SP colonoscopy [facility] more than three years ago, diagnosed with diverticulosis. Denies family history of colon cancer Past Medical History: Cancer, CKF, High Lipids, HTN, Thyroid Past Surgical History: Tubal ligation, cataract surgery Social History: NO smoking, drinking ETOH and use of illegal drugs. Family History: Noncontributory Review of Systems: Constitutional: no fever, chill, weight loss HEENT: no eye pain, no hearing loss, no oral lesion, no scleral icterus Heart: no chest pain, no chest pressure Lung: no cough, no dyspnea with exertion Abdomen: see HPI Physical exam: General: NAD, AAOX3 Chest: lung pace clear to auscultation Heart: RRR, no murmur Abdomen: non-distended, no tenderness to palpation, +BS Labs: Labs Test 06/20/24 05:35 06/19/24 20:46 Range/Units White Blood Count 8.4 4.4-10.8 10^3/uL Red Blood Count 2.84 L 4.0-5.20 10^6/uL Hemoglobin 9.5 L 12.2-16.2 g/dL Hematocrit 27.4 L 36.0-46.0 % Mean Corpuscular Volume 96.3 80.0-100.0 fL Mean Corpuscular Hemoglobin 33.2 H 28.0-32.0 pg Mean Corpuscular Hemoglobin Concent 34.5 32.0-36.0 g/dL Red Cell Distribution Width 13.4 11.8-14.3 % Platelet Count 403 140-450 10^3/uL Mean Platelet Volume 6.7 L 6.9-10.8 fL Neutrophils (%) (Auto) 68.9 37.0-80.0 % Lymphocytes (%) (Auto) 15.5 10.0-50.0 % Monocytes (%) (Auto) 13.4 H 0.0-12.0 % Eosinophils (%) (Auto) 1.8 0.0-7.0 % Basophils (%) (Auto) 0.4 0.0-2.0 % Neutrophils # (Auto) 5.8 1.6-8.6 10 ^3/uL Lymphocytes # (Auto) 1.3 0.4-5.4 10 ^3/uL Monocytes # (Auto) 1.1 0-1.3 10 ^3/uL Eosinophils # (Auto) 0.1 0-0.8 10 ^3/uL Basophils # (Auto) 0 0-0.2 10 ^3/uL Nucleated Red Blood Cells 0.0 % Sodium Level 137 136-145 mmol/L Potassium Level 3.7 3.5-5.1 mmol/L Chloride Level 101 98-107 mmol/L Carbon Dioxide Level 24 20-31 mmol/L Anion Gap 12 5-15 Blood Urea Nitrogen 17 9-23 mg/dL Creatinine 1.08 H 0.550-1.02 mg/dL Glomerular Filtration Rate Calc 50 >90 mL/min BUN/Creatinine Ratio 15.7 10.0-20.0 Serum Glucose 94 74-106 mg/dL Calcium Level 9.9 8.7-10.4 mg/dL Total Bilirubin 0.7 0.2-1.0 mg/dL Aspartate Amino Transferase (AST) 16 13-40 U/L Alanine Aminotransferase (ALT) 12 7-40 U/L Alkaline Phosphatase 101 46-116 U/L Total Protein 7.2 5.7-8.2 g/dL Albumin 4.4 3.2-4.8 g/dL Urine Color Colorless Yellow Urine Clarity Clear Clear Urine pH 6.5 5.0-9.0 Urine Specific [place] 1.009 1.001-1.035 Urine Protein Negative Negative Urine Ketones Negative Negative Urine Blood Negative Negative /uL Urine Nitrite Negative Negative Urine Bilirubin Negative Negative Urine Urobilinogen Normal Negative mg/dL Urine Leukocyte Esterase Negative Negative /uL Urine RBC 1 0 - 4 /hpf Urine Microscopic WBC < 1 0-5 /HPF Urine Squamous Epithelial Cells Few <5 /hpf Urine Bacteria None seen None Seen /hpf Urine Glucose Normal Normal mg/dL Imaging: CT abdomen pelvis IMPRESSION: 1. Hiatal hernia 2. No calcified gallstones 3. No nephrolithiasis or hydronephrosis 4. No findings of bowel obstruction. There is a large stool burden in the right colon. 5. No free air or free fluid. Assessment: Constipation Hiatal hernia Plan: Discussed with Dr. Rohit Quintana Recommend fleets enema if required Clear liquid diet advance to full liquid if tolerating We will continue to follow this patient Discussed plan with patient and RN Thank you for this consult Date of Service: Jun 20, 2024 Billing Provider: IFTIKHAR CESPEDES Common Visit Codes: CONSULT ONLY Consultation Codes: [id number] CONSULT <45MIN IFTIKHAR CESPEDES Jun 20, 2024 13:30
[2024-06-20 19:55] VITALS: O2SAT 100
[2024-06-20 23:06] VITALS: BP 133/71; PULSE 95; RESP 17; TEMP 98.7; O2SAT 98
[2024-06-20 23:11] VITALS: BP 131/71; PULSE 70; RESP 20; TEMP 97.9; O2SAT 95
[2024-06-21 01:15] VITALS: BP 147/62; PULSE 92; RESP 18; TEMP 97.8; O2SAT 95
[2024-06-21 05:28] VITALS: BP 116/45; PULSE 100; RESP 17; TEMP 99.3; O2SAT 96
[2024-06-21 08:00] VITALS: PULSE 92; PULSE 97; RESP 16; O2SAT 96
--- NOTE | 2024-06-21 08:35 | DVHDS2 ---
Discharge Summary Date of Admission Jun 19, 2024 at 23:50 Date of Discharge: Jun 21, 2024 Labs/Diagnostic Data: Laboratory Results Test 06/20/24 05:35 06/19/24 20:46 White Blood Count 8.4 10^3/uL (4.4-10.8) Red Blood Count 2.84 10^6/uL (4.0-5.20) Hemoglobin 9.5 g/dL (12.2-16.2) Hematocrit 27.4 % (36.0-46.0) Mean Corpuscular Volume 96.3 fL (80.0-100.0) Mean Corpuscular Hemoglobin 33.2 pg (28.0-32.0) Mean Corpuscular Hemoglobin Concent 34.5 g/dL (32.0-36.0) Red Cell Distribution Width 13.4 % (11.8-14.3) Platelet Count 403 10^3/uL (140-450) Mean Platelet Volume 6.7 fL (6.9-10.8) Neutrophils (%) (Auto) 68.9 % (37.0-80.0) Lymphocytes (%) (Auto) 15.5 % (10.0-50.0) Monocytes (%) (Auto) 13.4 % (0.0-12.0) Eosinophils (%) (Auto) 1.8 % (0.0-7.0) Basophils (%) (Auto) 0.4 % (0.0-2.0) Neutrophils # (Auto) 5.8 10 ^3/uL (1.6-8.6) Lymphocytes # (Auto) 1.3 10 ^3/uL (0.4-5.4) Monocytes # (Auto) 1.1 10 ^3/uL (0-1.3) Eosinophils # (Auto) 0.1 10 ^3/uL (0-0.8) Basophils # (Auto) 0 10 ^3/uL (0-0.2) Nucleated Red Blood Cells 0.0 % Sodium Level 137 mmol/L (136-145) Potassium Level 3.7 mmol/L (3.5-5.1) Chloride Level 101 mmol/L (98-107) Carbon Dioxide Level 24 mmol/L (20-31) Anion Gap 12 (5-15) Blood Urea Nitrogen 17 mg/dL (9-23) Creatinine 1.08 mg/dL (0.550-1.02) Glomerular Filtration Rate Calc 50 mL/min (>90) BUN/Creatinine Ratio 15.7 (10.0-20.0) Serum Glucose 94 mg/dL (74-106) Calcium Level 9.9 mg/dL (8.7-10.4) Total Bilirubin 0.7 mg/dL (0.2-1.0) Aspartate Amino Transferase (AST) 16 U/L (13-40) Alanine Aminotransferase (ALT) 12 U/L (7-40) Alkaline Phosphatase 101 U/L (46-116) Total Protein 7.2 g/dL (5.7-8.2) Albumin 4.4 g/dL (3.2-4.8) Urine Color Colorless (Yellow) Urine Clarity Clear (Clear) Urine pH 6.5 (5.0-9.0) Urine Specific [place] 1.009 (1.001-1.035) Urine Protein Negative (Negative) Urine Ketones Negative (Negative) Urine Blood Negative /uL (Negative) Urine Nitrite Negative (Negative) Urine Bilirubin Negative (Negative) Urine Urobilinogen Normal mg/dL (Negative) Urine Leukocyte Esterase Negative /uL (Negative) Urine RBC 1 /hpf (0 - 4) Urine Microscopic WBC < 1 /HPF (0-5) Urine Squamous Epithelial Cells Few /hpf (<5) Urine Bacteria None seen /hpf (None Seen) Urine Glucose Normal mg/dL (Normal) Other Laboratory Tests 06/20/24 05:35 Brief Hx & Hospital Course: Patient was admitted on 06/19/2024 for severe abdominal pain related to severe constipation. Patient was started on cathartics. She was sent home a prescription for as needed MiraLAX. Patient was instructed to follow-up with her PCP in 1 week. The patient received proper medical treatment and medications. Vital signs, Imaging and Laboratory Work was monitored daily. All consults recommendations were followed as provided. There were no complaints or new complaints upon discharge, all questions and concerns were answered. Patient was advised to return to the ER or call 911 if any headaches, dizziness, shortness of breath, chest pain, bleeding, fevers, or worsening of medical condition. Patient/Family was counseled about treatment plan, medications, possible side effects, patient verbalized understanding. All questions were answered to the best of my ability. The patient symptoms improved and they are okay to be DC. Condition at Discharge: Stable Final Diagnosis/Problems List Abdominal pain and constipation Oral cancer Hypothyroidism Hypertension Peripheral neuropathy Discharge Disposition: Home Discharge Statement: "Patient was advised to return to the ER or call 911 if any headaches, dizziness, shortness of breath, chest pain, abdominal pain, bleeding, fevers, or worsening of medical condition. Patient was counseled about treatment plan, medications, possible side effects, patientverbalized understanding. All questions were answered to the best of my ability. This discharge took greater then 30 minutes in planning, reviewing documentation, counseling the patient, and discussing with other team members." ASSESSMENT ASSESSMENT Assessment ANNEMARIE MILLER NP Jun 21, 2024 08:35
--- NOTE | 2024-06-21 08:35 | DVHPN2 ---
Progress Note - Dictate Date Seen: Jun 20, 2024 Medical Necessity Reason Pt with a Central, PICC or Fol: No vital signs Vital Sign Date Time Temp Pulse Resp B/P (MAP) Pulse Ox O2 Delivery O2 Flow Rate FiO2 06/21/24 05:28 99.3 100 17 116/45 (68) 96 99.3 06/20/24 23:11 Room Air* 0 21 Total Intake and Output 06/20/24 06/20/24 06/21/24 15:00 23:00 07:00 Intake Total 720 ml 240 ml 150 ml Balance 720 ml 240 ml 150 ml medications Current Medications Medications Dose Ordered Sig/Annie Route Start Time Stop Time Status Last Admin Dose Admin Sodium Chloride 1,000 ml @ 120 mls/hr Q8H20M IV 06/20/24 00:00 06/21/24 01:02 120 MLS/HR Acetaminophen 325 mg Q4HP PRN PO 06/20/24 00:00 Ondansetron HCl 4 mg Q4HP PRN IV 06/20/24 00:00 Morphine Sulfate 2 mg Q4HPRN PRN IV 06/20/24 00:00 Nitroglycerin 0.4 mg Q5MINP PRN SL 06/20/24 00:00 Morphine Sulfate 2 mg Q30M PRN IV 06/20/24 00:00 Polyethylene Glycol 17 gm BID PO 06/20/24 10:00 06/20/24 11:06 17 GM Hydralazine HCl 10 mg Q4HPRN IV 06/20/24 05:15 06/21/24 05:18 10 MG objective General Appearance: alert, no distress HEENT: EOMI, PERRLA, normal external inspect of ears, no icterus, no nasal drainage Neck: no carotid bruit, no jugular venous distention (JVD), no lymphadenopathy Chest: normal thorax Respiratory: clear to auscultation, normal air movement Cardiovascular: regular rate and rhythm, no diastolic murmur, no jugular venous distention (JVD), no rub, no systolic murmur Abdominal: soft, no hepatomegaly, no mass, no splenomegaly, no tenderness Genitourinary: grossly normal external Musculoskeletal: no joint tenderness, no swelling Extremities: normal pulses, no calf tenderness, no clubbing, no cyanosis, no edema Skin: no bruising, no jaundice, no rash Neurological: alert, No focal deficit laboratory and microbiology Laboratory Tests 06/20/24 05:35 Test 06/20/24 05:35 Range/Units Serum Glucose 94 74-106 mg/dL Problem List 1. Abdominal pain and constipation Initiate laxatives, IV hydration, GI consult 2. Oral cancer Monitor 3. Hypothyroidism Monitor, medication 4. Hypertension Monitor, medication 5. Peripheral neuropathy Monitor, Gabapentin Assessment/Plan Subjective: Patient is awake and alert. Objective: Patient is [place]-speaking. Patient was admitted for abdominal pain related to severe constipation. Patient was started on cathartics. Plan: Continue current treatment. Monitor for bowel movement. DC planning for tomorrow. Plan discussed with: Patient, Other ANNEMARIE MILLER NP Jun 21, 2024 08:35
[2024-06-21] MEDS ORDERED: POLY335015 PO (08:37)
[2024-06-21 09:20] VITALS: BP 113/43; PULSE 97; RESP 16; TEMP 98.6; O2SAT 96
[2024-06-21 10:15] VITALS: BP 113/43
[2024-06-21 12:34] VITALS: BP 122/42; PULSE 91; RESP 18; TEMP 97.8; O2SAT 97
--- NOTE | 2024-06-21 14:36 | DVHPN2 ---
Progress Note Date Seen: Jun 21, 2024 Resident Creating Document: RIKY MCBRIDE RESIDENT Medical Necessity Reason Pt with a Central, PICC or Fol: No Subjective Review of Systems Patient seen and examined at the bedside. Patient is still reporting having constipation. Last bowel movement was today morning which she felt very hard. Enema Today. Objective vital signs Vital Sign Date Time Temp Pulse Resp B/P (MAP) Pulse Ox O2 Delivery O2 Flow Rate FiO2 06/21/24 12:34 97.8 91 18 122/42 (68) 97 97.8 06/21/24 08:00 Room Air* 0 21 Total Intake and Output 06/20/24 06/20/24 06/21/24 14:59 22:59 06:59 Intake Total 720 ml 240 ml 150 ml Balance 720 ml 240 ml 150 ml medications Current Medications Medications Dose Ordered Sig/Annie Route Start Time Stop Time Status Last Admin Dose Admin Sodium Chloride 1,000 ml @ 120 mls/hr Q8H20M IV 06/20/24 00:00 06/21/24 09:09 120 MLS/HR Acetaminophen 325 mg Q4HP PRN PO 06/20/24 00:00 Ondansetron HCl 4 mg Q4HP PRN IV 06/20/24 00:00 Morphine Sulfate 2 mg Q4HPRN PRN IV 06/20/24 00:00 Nitroglycerin 0.4 mg Q5MINP PRN SL 06/20/24 00:00 Morphine Sulfate 2 mg Q30M PRN IV 06/20/24 00:00 Polyethylene Glycol 17 gm BID PO 06/20/24 10:00 06/21/24 09:08 17 GM Hydralazine HCl 10 mg Q4HPRN IV 06/20/24 05:15 06/21/24 05:18 10 MG Examination Pt is lying on bed General Appearance: Alert, Oriented X3, Cooperative, Not in acute distress HEENT: Atraumatic, Mucous membranes moist/pink Respiratory: Clear to auscultation, Normal air movement, No added sounds Cardiovascular: Regular rate, Normal S1, Normal S2, No murmurs Abdominal: Active bowel sounds, Soft, no distention, no tenderness Extremities: No edema, Normal pulses, No tenderness/swelling Skin: No Significant rash, except past surgical scars Neuro: Normal speech, sensorimotor deficits none Psych/Mental Status: Mental status NL, Mood NL Nurse was there as sharperone during examination laboratory and microbiology Laboratory Tests 06/20/24 05:35 Test 06/20/24 05:35 Range/Units Serum Glucose 94 74-106 mg/dL Labs and/or images reviewed: Labs reviewed by me, Image(s) reviewed by me Problem List/Assessment/Plan Problem List/Assessment/Plan Constipation Hiatal hernia Plan: Recommended Fleet enema today MiraLax Recommend fleets enema if required Clear liquid diet advance to full liquid if tolerating Discharged with MiraLax Thank you so much for the opportunity to consult on your patient. Case an action plan discussed with Dr. Kaitlin Bee. Complex care planning needed total 49 minutes of detailed discussion. Plan discussed with: Patient My Orders My Orders Orders - RIKY MCBRIDE Procedure Category Date Status Time Soap [place] Enema ORDERS 06/21/24 Verified 14:33 RIKY MCBRIDE RESIDENT Jun 21, 2024 14:36
== END 2024-06-21 14:35 | disposition home or self-care (01) | DRG 247 ==
LOC: ER 20:29 → OVERFLOW 23:50 → TELE-WESTW 06-20 22:33
PROVIDERS: ADMIT Internal Medicine; ATTEND Internal Medicine
DX: K56.41 Fecal impaction (principal); C06.9 Malignant neoplasm of mouth, unspecified; K44.9 Diaphragmatic hernia without obstruction or gangrene; D50.9 Iron deficiency anemia, unspecified; E03.9 Hypothyroidism, unspecified; G62.9 Polyneuropathy, unspecified; E78.5 Hyperlipidemia, unspecified; F10.90 Alcohol use, unspecified, uncomplicated; I12.9 Hypertensive chronic kidney disease with stage 1 through stage 4 chronic kidney disease, or unspecified chronic kidney disease; N18.9 Chronic kidney disease, unspecified; Z79.899 Other long term (current) drug therapy; Z98.51 Tubal ligation status; Z85.819 Personal history of malignant neoplasm of unspecified site of lip, oral cavity, and pharynx; Z82.49 Family history of ischemic heart disease and other diseases of the circulatory system; Z80.9 Family history of malignant neoplasm, unspecified
CPT/HCPCS: 36415; 74176; 80053; 81001; 85025; G0378